=== PATIENT | female | born 1975 | race Caucasian/White ===

== ENCOUNTER 2021-04-30 08:00 | Outpatient (RCR) | payer OTHER, SELFPAY ==
--- NOTE | 2021-03-21 12:22 | PTOPEVAL ---
Thank you for referring Ashlie Kim to [facility] The patient is scheduled to be seen for therapy? 1x/week for 4-6 weeks. Please review, sign, date and return this plan of care MARCELLA. I agree with and certify that the following plan of care is medically necessary. Referring Physician Date Attending Provider: PHYSICIAN NOT ON STAFF Referring Provider: PHYSICIAN NOT ON STAFF *PT Outpatient Evaluation Start: 03/17/21 11:56 Freq: Status: Active Protocol: Document 03/17/21 11:56 [facility] (Rec: 03/21/21 12:21 [facility] [id number]) Therapy Assessment Status Assessment Status Assessment Status Evaluation Outpatient Past Medical History Past Medical History Source of Past Medical History Patient Musculoskeletal History Hx Fractures Yes: L tib fib spiral fx December 2019 Pain History History of Any Previous or Ongoing No Significant History Instance of Pain Pain Assessment Timing of Pain Assessment Timing of Pain Assessment Assessment Pain Scale Pain Scale Used Numeric (1 - 10) Self Report Pain Assessment Coccyx Reported Pain Level 7 Pain Description Sharp,Tender on Palpation Pain Frequency Intermittent Pain Aggravating Factors Sitting Pain Score Pain Score 7: Self Report Interventions Used Interventions Used By Clinicians Mobilization,Manual Therapy Techniques,Myofascial Release Pain Relief Interventions Used By Position Change Patient Cervical and Lumbar ROM Lumbar ROM Reason Not Measured WNL/Left,WNL/Right Lower Extremity Range of Motion General Lower Extremity Range of Motion Gross Lower Extremity Range of Motion Symmetrical hip ROM WNL tested Comments Lower Extremity Muscle Strength Testing General Lower Extremity Strength Reason Not Measured WNL/Left,WNL/Right Gross Lower Extremity Strength Pt works out with software trainer weekly Posture Posture Standing Position Posture Evaluation View Posterior Pelvis Posture Neutral Weight Distribution Balanced Leg Length Discrepancy None Additional Posture Comments Pt has done a great job at rehabilitation from spiral fracture. Assymetry is not evident with foot/hip/pelvic positioning. Greatest deficit is the R post rotation of the thoracic spine with rib cage posterior Palpation Assessment Palpation Palpation Tender over the tip of the coccyx only. Muscular
--- NOTE | 2021-06-17 13:54 | PCPTNOTE ---
Attending Provider: PHYSICIAN NOT ON STAFF Patient:Ashlie Kim Date of :1975 Patient has not returned for any further treatments since 04/30/2021, therefore she will be discharged at this time. Patient?s initial visit was on 03/17/2021 10:00 and she had a total of 4 visits. The goals have been partially met and she is continuing her HEP. Thank you for referring this patient to [facility]. Please review, sign, date and return this discharge summary MARCELLA. I have been updated about the patient's current status and I agree with discharge from the above service at this time. Referring Physician Date
== END 2021-06-15 23:59 | disposition home or self-care (01) ==
LOC: ANHPT 08:00
DX: M53.3 Sacrococcygeal disorders, not elsewhere classified (principal)
CPT/HCPCS: 97110; 97140; 97161